=== PATIENT | female | born 1985 | race Caucasian/White ===

== ENCOUNTER 2019-03-20 11:35 | Emergency (ER) | payer SELFPAY ==
[2019-03-20] MEDS ORDERED: AMOXICILLIN875 MG PO (12:52)
[2019-03-20 13:00] VITALS: BP 129/77
== END 2019-03-20 13:00 | disposition home or self-care (01) | DRG 153 ==
LOC: ED 11:35
DX: H66.91 Otitis media, unspecified, right ear (principal); S30.810A Abrasion of lower back and pelvis, initial encounter; S80.812A Abrasion, left lower leg, initial encounter; S80.811A Abrasion, right lower leg, initial encounter; X58.XXXA Exposure to other specified factors, initial encounter

== ENCOUNTER 2019-05-18 | Emergency (ER) | payer SELFPAY ==
[~2019-05-18] MED LIST: AMOXICILLIN875 MG PO
[2019-05-19] MEDS ORDERED: TORADOL PO (00:58)
== END 2019-05-19 01:23 | disposition home or self-care (01) | DRG 558 ==
DX: M77.9 Enthesopathy, unspecified (principal)